=== PATIENT | male | born 1950 | race Two or more races ===

== ENCOUNTER 2021-05-06 16:45 | Inpatient (IN) | payer MEDICARE ==
[~2021-05-06] VITALS: Ht 175.3 cm; Wt 99.8 kg
--- NOTE | 2021-05-06 16:45 | NUR ---
CONCHITA FROM [facility] TO ER BED 5. CODE STROKE ACTIVATED. PT IS AAOX4. NOT IN RESP DISTRESS, BREATHING EVEN AND UNLABORED. BROUGHT IN FOR L SIDED NUMBENESS. LKWT: 1600. PT [facility] SCORE OF 1. WASD AT BEDSIDE FOR EVAL. ORDERS RECEIVED, NOTED AND CARRIED OUT. IV LINE ALREADY ESTABLISHED ON THE L AC 20. BLOOD DRAWN.
--- NOTE | 2021-05-06 16:45 | NUR ---
1644 CODE STROKE ACTIVATED. LKW IS AT 1600
--- NOTE | 2021-05-06 16:47 | NUR ---
PATIENT TAKEN TO CT.
--- NOTE | 2021-05-06 16:48 | NUR ---
PT ON CT TABLE
--- NOTE | 2021-05-06 16:52 | NUR ---
PT BACK TO ER FROM CT
--- NOTE | 2021-05-06 17:00 | NUR ---
NEUROLOGIST ON ROBOT TALKING TO PATIENT
[2021-05-06 17:02] LABS: BASOPHILS # (AUTO) 0.1 K/uL (0.0-0.2); BASOPHILS % (AUTO) 0.7 % (0.0-2.0); EOSINOPHILS % (AUTO) 0.7 % (0.0-6.0); HEMATOCRIT 37 % (39-51); HEMOGLOBIN 12.4 g/dL (13.5-17.5); LYMPHOCYTES # (AUTO) 1.3 K/uL (0.8-4.8); LYMPHOCYTES % (AUTO) 9.7 % (20.0-44.0); MEAN CORPUSCULAR HGB CONC 33 g/dl (31.0-36.0); MEAN CORPUSCULAR VOLUME 83 fL (80-96); MONOCYTES # (AUTO) 0.9 K/uL (0.1-1.30); NEUTROPHILS # (AUTO) 10.6 K/uL (1.8-8.9); NEUTROPHILS % (AUTO) 81.9 % (43.0-81.0); PLATELET COUNT (AUTO) 237 K/uL (150-450); RED BLOOD CELL COUNT(AUTO) 4.47 MIL/uL (4.5-6.0); WHITE BLOOD COUNT (AUTO) 12.9 K/uL (4.3-11.0)
--- NOTE | 2021-05-06 17:11 | NUR ---
PT IS NOT CANDIDATE FOR TPA PER ER MD
[2021-05-06 17:15] LABS: CALCIUM, SERUM 8.4 mg/dL (8.5-10.1); CARBON DIOXIDE 19 mmol/L (21-32); CHLORIDE 101 mmol/L (98-107); CREATININE 2.4 mg/dL (0.6-1.3); POTASSIUM 6.2 mmol/L (3.5-5.1); SODIUM SERUM 132 mmol/L (136-145); UREA NITROGEN, BLOOD 31 mg/dL (7-18)
[2021-05-06 17:16] LABS: GLUCOSE 427 mg/dL (74-106)
[2021-05-06] MEDS ORDERED: ASPIRIN 325 MG TABLET ONE (17:19)
[2021-05-06] MEDS ORDERED: ASPIRIN 325 MG TABLET PO ONE (17:30)
[2021-05-06] MEDS ORDERED: LABETALOL HCL IV 100MG VIAL IV PRN (18:30)
[2021-05-06] MEDS ORDERED: DEXTROSE 50%-WATER 50 ML DISP.SYRIN IV PRN (18:30)
[2021-05-06] MEDS ORDERED: ENALAPRILAT INJ (1.25 MG/ML) 1.25 MG/ML VIAL IV PRN (18:30)
[2021-05-06] MEDS ORDERED: ACETAMINOPHEN 325 MG TABLET PO PRN (18:30)
[2021-05-06] MEDS ORDERED: MAG HYDROX/AL HYDROX/SIMETH 30 ML UDC PO PRN (18:30)
[2021-05-06] MEDS ORDERED: SODIUM POLYSTYRENE SULFONATE 15 G/60 ML BOTTLE PO ONE ×2 (19:00→20:30)
--- NOTE | 2021-05-06 19:15 | NUR ---
ROOM 324-2
--- NOTE | 2021-05-06 19:37 | NUR ---
REPORT GIVEN TO TAI WONG FOR CANDE. PT IS ENROUTE TO UNIT ON [facility] EMT AND RN AT BEDSIDE W/ ACLS PROTOCOL. NAD NOTED DURING TRANSPORT.
[2021-05-06 20:00] VITALS: BP_SYST 125; BP_SYST 127; BP_DIAS 56
--- NOTE | 2021-05-06 20:00 | NUR ---
PASSEMENTERIE WORKERKAI WHAKARURUHAU NOTES RECEIVED ADMISSION FROM ER PER ELIZABETH THIS 71 Y.O. MALE,ALERT,ORIENTED X3,WITH CHIEF COMPLAINTS OF NUMBNESS ON ARMS AND LEGS WHILE EATING IN A RESTAURANT.DIAGNOSIS STROKE,STROKE ASSESSMENT DONE.BOTH HANDS WITH STRONG BRICK PAVER,NO DRIPS,ABLE TO WIGGLE HIS TOES,NO DRIPS.NO FACIAL DROOP.SALINE LOCK LEFT AC INTACT AND PATENT.ABLE TO AMBULATE WITH ASSIST.FALL PRECAUTION OBSERVED,BED ON LOWEST POSITION AND LOCKED,BED ALARM TRIGGERED.CALL LIGHT IN REACH,NEEDS ANTICIPATED.
--- NOTE | 2021-05-06 20:59 | NUR ---
FOOD PRODUCTION MACHINE OPERATOR NOTES SR-83 ON TELE MONITOR
[2021-05-06 21:17] LABS: CHOLESTEROL 131 mg/dL (<200); HDL CHOLESTEROL 29 mg/dL (40-60); LDL 58 mg/dL (0-99); TRIGLYCERIDES 309 mg/dL (30-150)
[2021-05-06] MEDS: MYCOPHENOLATE MOFETIL 250 MG CAPSULE PO SCH (21:19)
[2021-05-06] MEDS: TACROLIMUS ANHYDROUS 0.5 MG CAPSULE PO SCH (21:20)
[2021-05-06] MEDS: SIMVASTATIN 20 MG TABLET PO SCH (21:20)
[2021-05-06] MEDS: HEPARIN SODIUM, PORCINE 5000 UNITS/1 ML VIAL SQ SCH (21:22)
[2021-05-06] MEDS: BLOOD SUGAR DIAGNOSTIC 1 EACH STRIP VI SCH (21:23)
[2021-05-06] MEDS: INSULIN REGULAR, HUMAN 100 UNIT/ML 3 ML VIAL SQ PRN (21:42)
--- NOTE | 2021-05-06 22:00 | NUR ---
ENROBING MACHINE FEEDER NOTES ACCU-CHECK BLOOD SUGAR CHECK 301,COVERED WITH HUMULIN R 8 UNITS PER MODERATE SLIDING SCALE.
[2021-05-06 23:33] VITALS: BP 113/48
[2021-05-07] VITALS (7 sets, daily range): BP systolic 113–184; BP diastolic 48–97
[2021-05-07] MEDS: BLOOD SUGAR DIAGNOSTIC 1 EACH STRIP VI SCH ×4 (05:43→21:37)
[2021-05-07] MEDS: INSULIN REGULAR, HUMAN 100 UNIT/ML 3 ML VIAL SQ PRN ×2 (05:46→17:56)
--- NOTE | 2021-05-07 06:00 | NUR ---
PLANT ANATOMIST NOTES ACV[facility]-CHECK BLOOD SUGAR CHECK 209,WILL COVER WITH HUMULIN R 6 UNITS PER SLIDING SCALE.
[2021-05-07 06:28] LABS: CALCIUM, SERUM 8.4 mg/dL (8.5-10.1); CREATININE 2.3 mg/dL (0.6-1.3); POTASSIUM 4.3 mmol/L (3.5-5.1)
[2021-05-07 06:29] LABS: BASOPHILS % (AUTO) 0.4 % (0.0-2.0); EOSINOPHILS % (AUTO) 1.1 % (0.0-6.0); HEMATOCRIT 36 % (39-51); HEMOGLOBIN 12.3 g/dL (13.5-17.5); LYMPHOCYTES # (AUTO) 1.3 K/uL (0.8-4.8); LYMPHOCYTES % (AUTO) 17.6 % (20.0-44.0); MEAN CORPUSCULAR HGB CONC 34 g/dl (31.0-36.0); MEAN CORPUSCULAR VOLUME 84 fL (80-96); MONOCYTES # (AUTO) 0.6 K/uL (0.1-1.30); MONOCYTES % (AUTO) 7.3 % (2.0-12.0); NEUTROPHILS # (AUTO) 5.6 K/uL (1.8-8.9); NEUTROPHILS % (AUTO) 73.6 % (43.0-81.0); PLATELET COUNT (AUTO) 192 K/uL (150-450); RED BLOOD CELL COUNT(AUTO) 4.28 MIL/uL (4.5-6.0); WHITE BLOOD COUNT (AUTO) 7.6 K/uL (4.3-11.0)
--- NOTE | 2021-05-07 06:50 | NUR ---
LANDFILL GRADER NOTES ON BED,SLEPT WELL AT NIGHT,CLAIMED NUMBNESS ON UPPER AND LOWER EXTREMITIES IMPROVED,NO SLURRED SPEECH,IN NO ACUTE DISTRESS.CALL LIGHT IN REACH,NEEDS ATTENDED.
[2021-05-07] MEDS ORDERED: PANTOPRAZOLE 40 MG TABLET.DR PO SCH (07:30)
--- NOTE | 2021-05-07 07:30 | NUR ---
RESEARCH DEVELOPMENT MANAGER OPENING NOTES RECEIVE PATIENT ON BED, AWAKE AND A/O X4. ON ROOM AIR, BREATHING EVENLY AND UNLABORED. NOT IN DISTRESS. WITH NO COMPLAINTS OF PAIN OR DISCOMFORT AT THIS TIME. WITH IV ACCESS AT LEFT AC G18, SALINE LOCKED, INTACT AND PATENT. SAFETY MEASURES IN PLACED. CALL LIGHT WITHIN REACH. BED ON LOWEST AND LOCKED POSITION WITH SIDE RAILS UP X2. WILL CONTINUE TO MONITOR.
[2021-05-07] MEDS ORDERED: LISI20TA30 PO (08:45)
[2021-05-07] MEDS ORDERED: VENL37.55 PO (08:45)
[2021-05-07] MEDS ORDERED: MYCOPHENOLATE (08:45)
[2021-05-07] MEDS ORDERED: CARV12.52 PO (08:45)
[2021-05-07] MEDS ORDERED: [UNRECOGNIZED DRUG - REMARK] (08:45)
[2021-05-07] MEDS ORDERED: PANT40TA49 PO (08:45)
[2021-05-07] MEDS ORDERED: TAMS-12 PO (08:45)
[2021-05-07] MEDS ORDERED: ATOR40TA PO (08:45)
[2021-05-07] MEDS ORDERED: predniSONE 20 MG TABLET PO SCH (09:00)
[2021-05-07] MEDS: ASPIRIN EC 325 MG TABLET.DR PO SCH (09:02)
[2021-05-07] MEDS: MYCOPHENOLATE MOFETIL 250 MG CAPSULE PO SCH ×2 (09:02→21:02)
[2021-05-07] MEDS: HEPARIN SODIUM, PORCINE 5000 UNITS/1 ML VIAL SQ SCH ×2 (09:08→21:04)
[2021-05-07] MEDS: TACROLIMUS ANHYDROUS 0.5 MG CAPSULE PO SCH ×2 (10:33→21:03)
[2021-05-07] MEDS ORDERED: TACR1CAP2 PO (10:57)
[2021-05-07] MEDS ORDERED: MYCO500T PO (10:57)
[2021-05-07] MEDS ORDERED: VENL150C2 PO (12:29)
[2021-05-07] MEDS ORDERED: MYCO250C PO (12:29)
[2021-05-07] MEDS ORDERED: DEXT15DR6 EACHEYE (12:31)
[2021-05-07] MEDS ORDERED: CHOL100045 PO (12:33)
[2021-05-07] MEDS ORDERED: FLUT16SP16 NS (12:35)
[2021-05-07] MEDS ORDERED: INSU100V7 SQ (12:36)
[2021-05-07] MEDS ORDERED: MAGN200T5 PO (12:38)
[2021-05-07] MEDS ORDERED: SEMA0.25 SQ (12:39)
[2021-05-07] MEDS ORDERED: INSU100V42 SQ (12:40)
[2021-05-07] MEDS ORDERED: POLYVINYL ALCOHOL 15 ML BOTTLE EACHEYE PRN (15:00)
[2021-05-07] MEDS: FLUTICASONE PROPIONATE 16 GM BOTTLE NS SCH (15:24)
--- NOTE | 2021-05-07 16:05 | NUR ---
SS Consult: SS consult requested for stroke protocol. The pt. is a 71 year old male at [facility]. Per pt. he was seeking medical attention for possible stroke due to left sided weakness. The pt. is A&O X4 and makes good eye contact. The pt.'s speech and mood are WNL. Pt. denies SI/HI and denies hallucinations. Pt. states he will return back home[[id number] [facility] [address]; [phone]] when ready to discharge. Pt. stated he has 4 children and his support system also includes a few neighbors in his intermediate building. Pt. received SSI and [place] benefits. Pt. denies drug & alcohol use. Pt. has been diagnosed with depression in the past and is on Venlafaxine. SW provided Stroke Empowerment educational material and pt. accepted it.
[2021-05-07] MEDS: CARVEDILOL 12.5 MG TABLET PO SCH (17:42)
--- NOTE | 2021-05-07 18:27 | NUR ---
CONTROL SYSTEM MANAGER CLOSING NOTES RECEIVE PATIENT ON BED, AWAKE AND A/O X4. ON ROOM AIR, BREATHING EVENLY AND UNLABORED. NOT IN DISTRESS. WITH NO COMPLAINTS OF PAIN OR DISCOMFORT AT THIS TIME. WITH IV ACCESS AT LEFT AC G18, SALINE LOCKED, INTACT AND PATENT. SAFETY MEASURES IN PLACED. CALL LIGHT WITHIN REACH. BED ON LOWEST AND LOCKED POSITION WITH SIDE RAILS UP X2. WILL ENDORSE TO NEXT SHIFT FOR CANDE..
--- NOTE | 2021-05-07 19:45 | NUR ---
PHYSICAL MEDICINE PHYSICIAN NOTES RECEIVED RESTING COMFORTABLY ON BED,BREATHING REGULAR,NOT IN ANY FORM OF DISTRESS,O2 SAT96% ON ROOM AIR.SALINE LOCK LEFT AC INTACT AND PATENT.AMBULATE WITH STEADY GAIT THIS TIME.DENIES CHEST PAIN,DENIES NUMBNESS ON BOTH UPPER AND LOWER EXTREMITIES.CALL LIGHT IN REACH,NEEDS ANTICIPATED.
[2021-05-07] MEDS: TAMSULOSIN 0.4 MG CAP.SR.24H PO SCH (21:06)
[2021-05-07] MEDS: SIMVASTATIN 20 MG TABLET PO SCH (21:06)
[2021-05-07] MEDS ORDERED: ASPIRIN 81 MG TAB.CHEW ONE (21:22)
[2021-05-07] MEDS: INSULIN GLARGINE, 100 UNIT/ML CARTRIDGE SQ SCH (21:41)
[2021-05-07] MEDS: *INSULIN REGULAR(HUMULIN R)HUM 100 UNIT/ML VIAL SQ PRN (21:44)
--- NOTE | 2021-05-07 22:35 | NUR ---
WOOD AND HARDWARE OUTFITTER NOTES MRI BRAIN WITHOUT CONTRAST RESULT IN,DR JARA MADE AWARE,WITH ORDER TO JUST CONTINUE NEURO CHECK AND ASPIRIN ORDER.
[2021-05-08] VITALS: BP 157/77
[2021-05-08 03:48] VITALS: BP 141/73
[2021-05-08] MEDS: BLOOD SUGAR DIAGNOSTIC 1 EACH STRIP VI SCH ×4 (05:34→21:13)
--- NOTE | 2021-05-08 05:45 | NUR ---
SLEEVE WHEEL MAKER NOTES ACCU-CHECK BLOOD SUGAR CHECK 177,COVERED WITH HUMULIN R 3 UNITS PER SLIDING SCALE.
[2021-05-08] MEDS: INSULIN REGULAR, HUMAN 100 UNIT/ML 3 ML VIAL SQ PRN ×3 (05:47→18:08)
--- NOTE | 2021-05-08 06:52 | NUR ---
COCOA BEAN ROASTER NOTES RESTED FAIRLY AT NIGHT,REMAINS ALERT,ORIENTED X4,DENIES WEAKNESS,STILL NEED URINE FOR FOR LAB WORKS ORDERED.IN NO ACUTE DISTRESS
[2021-05-08 07:21] LABS: CALCIUM, SERUM 8.7 mg/dL (8.5-10.1); POTASSIUM 4.4 mmol/L (3.5-5.1)
--- NOTE | 2021-05-08 07:30 | NUR ---
COLLEGE INSTRUCTOR OPENING NOTES RECEIVED PATIENT ON BED, AWAKE AND A/O X4. ON ROOM AIR BREATHING EVENLY AND UNLABORED. NOT IN DISTRESS. WITH NO COMPLAINTS OF PAIN OR DISCOMFORT AT THIS TIME. ON TELE MONITOR WITH CURRENT READING SR WITH SOME PVCS AT 79BPM. WITH IV ACCESS AT LEFT AC G18 HEPLOCK, PATENT AND INTACT. SAFETY MEASURES IN PLACED. CALL LIGHT WITHIN EASY REACH. BED ON LOWEST AND LOCKED POSITION. SIDE RAILS UP X2. WILL CONTINUE TO MONITOR.
[2021-05-08] MEDS: CHOLECALCIFEROL 1,000 UNIT TABLET (VIT D3) PO SCH (08:18)
[2021-05-08] MEDS: CARVEDILOL 12.5 MG TABLET PO SCH ×2 (08:19→17:10)
[2021-05-08] MEDS: MAGNESIUM OXIDE 400 MG TABLET PO SCH (08:19)
[2021-05-08] MEDS: GEMFIBROZIL 600 MG TABLET PO SCH ×2 (08:20→21:13)
[2021-05-08] MEDS: VENLAFAXINE XR 150 MG CAP.SR.24H PO SCH (08:20)
[2021-05-08] MEDS: PANTOPRAZOLE 40 MG TABLET.DR PO SCH (08:21)
[2021-05-08] MEDS: predniSONE 5 MG TABLET PO SCH (08:21)
[2021-05-08 08:37] VITALS: BP 148/86
[2021-05-08] MEDS: FLUTICASONE PROPIONATE 16 GM BOTTLE NS SCH (09:20)
[2021-05-08] MEDS: TACROLIMUS ANHYDROUS 0.5 MG CAPSULE PO SCH ×2 (09:20→21:12)
[2021-05-08] MEDS: ASPIRIN EC 325 MG TABLET.DR PO SCH (09:21)
[2021-05-08] MEDS: MYCOPHENOLATE MOFETIL 250 MG CAPSULE PO SCH ×2 (09:21→21:13)
[2021-05-08] MEDS: HEPARIN SODIUM, PORCINE 5000 UNITS/1 ML VIAL SQ SCH ×2 (09:22→21:19)
[2021-05-08 12:52] LABS: BILIRUBIN,URINE NEGATIVE (NEGATIVE); COLOR,URINE YELLOW (YELLOW); LEUKOCYTE ESTERASE ,URINE NEGATIVE (NEGATIVE); NITRITE, URINE NEGATIVE (NEGATIVE); PH,URINE 6.5 (5.0-8.0); PROTEIN,URINE 30 mg/dl (NEGATIVE); UGLUCOSE 500 MG/DL mg/dL (NEGATIVE); UROBILINOGEN,URINE 0.2 EU/dL (0.2)
[2021-05-08 13:12] LABS: BACTERIA,URINE Rare /HPF (None Seen); RBC,URINE NONE SEEN /HPF (0-2); WBC,URINE 0-2 /HPF (0-3)
[2021-05-08 13:13] LABS: SQUAMOUS EPITHELIAL CELL,UR Few /HPF (None Seen)
[2021-05-08 13:43] LABS: CREATININE, URINE 81.8 MG/DL (30.0-125.0)
[2021-05-08 16:11] VITALS: BP 172/92
--- NOTE | 2021-05-08 18:55 | NUR ---
MS RN CLOSING NOTES PATIENT ON BED, AWAKE AND A/O X4. ON ROOM AIR BREATHING EVENLY AND UNLABORED. NOT IN DISTRESS. WITH NO COMPLAINTS OF PAIN OR DISCOMFORT AT THIS TIME. WITH IV ACCESS AT LEFT AC G18 HEPLOCK, PATENT AND INTACT. SAFETY MEASURES IN PLACED. CALL LIGHT WITHIN EASY REACH. BED ON LOWEST AND LOCKED POSITION. SIDE RAILS UP X2. WILL ENDORSE TO NEXT SHIFT.
--- NOTE | 2021-05-08 19:50 | NUR ---
MS RN OPENINGS NOTES RECEIVED PT IN BED, WATCHING TV. PT IS AOx4. PT IS ON ROOM AIR AND TOLERATING WELL. NO SOB NOTED. NO S/SX OF RESPIRATORY DISTRESS. IV ACCESS IN L AC #18. IV IS INTACT, PATENT, FLUSHING WELL, AND SALINE LOCKED. SAFETY MEASURES IN PLACE: BED IN LOWEST, LOCKED POSITION, SIDERAILS UP x2. CALL LIGHT AND TABLE WITHIN REACH. WILL CONTINUE TO MONITOR.
[2021-05-08 20:00] VITALS: BP 162/79
[2021-05-08] MEDS: SIMVASTATIN 20 MG TABLET PO SCH (21:13)
[2021-05-08] MEDS: TAMSULOSIN 0.4 MG CAP.SR.24H PO SCH (21:13)
[2021-05-08] MEDS: INSULIN GLARGINE, 100 UNIT/ML CARTRIDGE SQ SCH (21:15)
[2021-05-08] MEDS: *INSULIN REGULAR(HUMULIN R)HUM 100 UNIT/ML VIAL SQ PRN (21:17)
--- NOTE | 2021-05-09 01:34 | NUR ---
JOSE RETURN CALL FROM DR. MCINTOSH REGARDING PATIENTS' COMPLAINTS OF ITCHING, ORDERS RECEIVED. Addendum: 05/09/21 at 0141 by ENRIQUE BUCKLEY RN DISREGARD ABOVE DOCUMENTATION. WRONG PATIENT
--- NOTE | 2021-05-09 06:49 | NUR ---
MS RN CLOSING NOTES PT IN SLEEPING, AWAKENS TO VERBAL STIMULI. PT IS AOx4. PT IS ON ROOM AIR AND TOLERATING WELL. NO SOB NOTED. NO S/SX OF RESPIRATORY DISTRESS. IV ACCESS IN L AC #18. IV IS INTACT, PATENT, FLUSHING WELL, AND SALINE LOCKED. ALL NEEDS MET. PT KEPT CLEAN AND DRY. SAFETY MEASURES IN PLACE: BED IN LOWEST, LOCKED POSITION, SIDERAILS UP x2. CALL LIGHT AND TABLE WITHIN REACH. WILL ENDORSE TO ONCOMING SHIFT.
[2021-05-09] MEDS: BLOOD SUGAR DIAGNOSTIC 1 EACH STRIP VI SCH (07:01)
[2021-05-09] MEDS: INSULIN REGULAR, HUMAN 100 UNIT/ML 3 ML VIAL SQ PRN (07:02)
--- NOTE | 2021-05-09 07:30 | NUR ---
MS RN OPENINGS NOTES RECEIVED PT IN BED, AWAKE, PT IS AOx4. PT IS ON ROOM AIR AND TOLERATING WELL. NO SOB NOTED. NO S/SX OF RESPIRATORY DISTRESS. NOTED WITH WEAKNESS ON LEFT SIDE. IV ACCESS IN L AC #18. IV IS INTACT, PATENT, FLUSHING WELL, AND SALINE LOCKED. SAFETY MEASURES IN PLACE: BED IN LOWEST, LOCKED POSITION, SIDE RAILS UP x2. CALL LIGHT AND TABLE WITHIN REACH. WILL CONTINUE TO MONITOR ACCORDINGLY.
[2021-05-09 08:00] VITALS: BP 142/84
[2021-05-09] MEDS: GEMFIBROZIL 600 MG TABLET PO SCH (08:17)
[2021-05-09] MEDS: CHOLECALCIFEROL 1,000 UNIT TABLET (VIT D3) PO SCH (08:18)
[2021-05-09] MEDS: PANTOPRAZOLE 40 MG TABLET.DR PO SCH (08:18)
[2021-05-09] MEDS: ASPIRIN EC 325 MG TABLET.DR PO SCH (08:19)
[2021-05-09] MEDS: predniSONE 5 MG TABLET PO SCH (08:19)
[2021-05-09] MEDS: VENLAFAXINE XR 150 MG CAP.SR.24H PO SCH (08:19)
[2021-05-09] MEDS: MYCOPHENOLATE MOFETIL 250 MG CAPSULE PO SCH (08:19)
[2021-05-09] MEDS: MAGNESIUM OXIDE 400 MG TABLET PO SCH (08:19)
[2021-05-09] MEDS: FLUTICASONE PROPIONATE 16 GM BOTTLE NS SCH (08:20)
[2021-05-09] MEDS: TACROLIMUS ANHYDROUS 0.5 MG CAPSULE PO SCH (08:20)
[2021-05-09 08:56] VITALS: BP 142/64
[2021-05-09] MEDS: CARVEDILOL 12.5 MG TABLET PO SCH (08:56)
[2021-05-09] MEDS: HEPARIN SODIUM, PORCINE 5000 UNITS/1 ML VIAL SQ SCH (08:57)
--- NOTE | 2021-05-09 11:22 | NUR ---
MS PROJECTS MANAGER NOTES DISCHARGED PATIENT IN STABLE CONDITION. VITAL SIGNS WITHIN NORMAL LIMITS. HEALTH EDUCATION, HOME MEDICATION DISCUSSED WITH PATIENT, INSTRUCTED ON FOLLOW UP WITH PRIMARY CARE PHYSICIAN, PATIENT VERBALIZED UNDERSTANDING OF INSTRUCTIONS GIVEN. IV ACCESS REMOVED, COVERED WITH GAUZE AND SECURED WITH TAPE. NO BLEEDING NOTED. ARMBAND REMOVED. BELONGINGS SIGNED AND ACCOUNTED FOR. WHEELED TO LOBBY BY ENRIQUE BARGER) ACCOMPANIED BY HIS 2 FRIENDS. LEFT UNIT IN STABLE CONDITION AT 11:15 AM. MD AND CHARGE NURSE AWARE OF DISCHARGE.
== END 2021-05-09 11:15 | disposition home health service (06) | DRG 64 ==
LOC: ER 16:46 → TELE 19:22 → MED 05-08 08:18
PROVIDERS: ADMIT Nurse Practitioner Acute Care; ATTEND Nurse Practitioner Acute Care
DX: I63.9 Cerebral infarction, unspecified (principal); N17.0 Acute kidney failure with tubular necrosis; E87.1 Hypo-osmolality and hyponatremia; Z94.4 Liver transplant status; Z94.0 Kidney transplant status; D84.9 Immunodeficiency, unspecified; E11.65 Type 2 diabetes mellitus with hyperglycemia; Z20.822 Contact with and (suspected) exposure to COVID-19; E78.5 Hyperlipidemia, unspecified; Z79.4 Long term (current) use of insulin; Z87.891 Personal history of nicotine dependence; R29.701 NIHSS score 1; E66.9 Obesity, unspecified; I10 Essential (primary) hypertension; F10.11 Alcohol abuse, in remission; Y90.9 Presence of alcohol in blood, level not specified; Z68.32 Body mass index [BMI] 32.0-32.9, adult; I67.2 Cerebral atherosclerosis; Z86.73 Personal history of transient ischemic attack (TIA), and cerebral infarction without residual deficits
CPT/HCPCS: 36415; 70450-TC; 70551-TC; 71045-TC; 76770-TC; 80048-TC; 80061-TC; 81001; 82570-TC; 82962-TC; 83880; 84300-TC; 84484-TC; 85025-TC; 85730-TC; 87081-TC; 92526; 92611-TC; 93307-TC; 93880-TC; 97116-TC; 97530-TC; C9803; G0378; J1644; J1815; J7507; J7512; J7517

== ENCOUNTER 2023-04-01 12:08 | Inpatient (IN) | payer MEDICARE ==
[~2023-04-01] VITALS: Ht 175.3 cm; Wt 82.6 kg
[2023-04-01] MEDS: TACROLIMUS ANHYDROUS 0.5 MG CAPSULE PO SCH ×2 (10:00→17:00)
[~2023-04-01 12:08] MED LIST: ATOR40TA PO; CARV12.52 PO; CHOL100045 PO; DEXT15DR6 EACHEYE; FLUT16SP16 BNOSTRILS; INSU100V42 SQ; INSU100V7 SQ; LISI20TA30 PO; MAGN200T5 PO; MYCO250C PO; PANT40TA49 PO; SEMA0.25 SQ; TACR1CAP2 PO; TAMS-12 PO; VENL150C2 PO
[2023-04-01] MEDS ORDERED: IV NS 0.9% 1,000 ML BAG IV ONE (12:30)
[2023-04-01 12:41] LABS: BASOPHILS % (AUTO) 0.2 % (0.0-2.0); EOSINOPHILS # (AUTO) 0.1 K/uL (0.0-0.7); EOSINOPHILS % (AUTO) 0.6 % (0.0-6.0); HEMATOCRIT 35 % (39-51); HEMOGLOBIN 11.4 g/dL (13.5-17.5); LYMPHOCYTES # (AUTO) 0.7 K/uL (0.8-4.8); LYMPHOCYTES % (AUTO) 6.2 % (20.0-44.0); MEAN CORPUSCULAR HEMOGLOBIN 28 PG (26.0-33.0); MEAN CORPUSCULAR HGB CONC 33 g/dl (31.0-36.0); MEAN CORPUSCULAR VOLUME 85 fL (80-96); MONOCYTES # (AUTO) 0.7 K/uL (0.1-1.30); MONOCYTES % (AUTO) 5.8 % (2.0-12.0); NEUTROPHILS % (AUTO) 87.2 % (43.0-81.0); PLATELET COUNT (AUTO) 209 K/uL (150-450); RED BLOOD CELL COUNT(AUTO) 4.14 MIL/uL (4.5-6.0); RED CELL DISTRIBUTION WIDTH 14.8 % (11.5-15.0); WHITE BLOOD COUNT (AUTO) 11.5 K/uL (4.3-11.0)
[2023-04-01 12:50] LABS: CALCIUM, SERUM 8.9 mg/dL (8.5-10.1); CARBON DIOXIDE 17 mmol/L (21-32); CHLORIDE 104 mmol/L (98-107); CREATININE 3.5 mg/dL (0.6-1.3); GLUCOSE 151 mg/dL (74-106); POTASSIUM 3.4 mmol/L (3.5-5.1); SODIUM SERUM 134 mmol/L (136-145); UREA NITROGEN, BLOOD 50 mg/dL (7-18)
[2023-04-01 12:52] LABS: PARTIAL THROMBOPLASTIN TIME 27.1 SEC (24.3-34.3); PROTHROMBIN TIME 10.5 SECS (9.2-11.1)
[2023-04-01 12:59] LABS: ALANINE AMINOTRANSFERASE 26 U/L (12-78); ALBUMIN 3.5 g/dL (3.4-5.0); ALKALINE PHOSPHATASE 80 U/L (46-116); ASPARTATE AMINOTRANSFERASE 24 U/L (15-37); BILIRUBIN,DIRECT 0.1 mg/dL (0.0-0.2); BILIRUBIN,TOTAL 0.6 mg/dL (0.2-1.0); TOTAL PROTEIN, SERUM 6.5 g/dL (6.4-8.2)
[2023-04-01] MEDS ORDERED: ENOXAPARIN SODIUM 40 MG/0.4 ML DISP.SYRIN SQ ONE (14:00)
[2023-04-01] MEDS ORDERED: ENOXAPARIN SODIUM 30 MG/0.3 ML DISP.SYRIN ONE (14:06)
[2023-04-01] MEDS ORDERED: DEXTROSE 50%-WATER 50 ML DISP.SYRIN IV PRN (14:30)
[2023-04-01] MEDS ORDERED: ONDANSETRON HCL/PF 4 MG/2 ML VIAL IVP PRN (14:30)
[2023-04-01] MEDS ORDERED: MORPHINE SULFATE INJ 2 MG/ML DISP.SYRIN IV PRN (14:30)
[2023-04-01] MEDS ORDERED: hydrALAZINE HCL IV 20 MG VIAL IV PRN (14:30)
[2023-04-01] MEDS ORDERED: ENOXAPARIN SODIUM 30 MG/0.3 ML DISP.SYRIN SQ ONE (14:30)
[2023-04-01] MEDS ORDERED: ACETAMINOPHEN 325 MG TABLET PO PRN (14:30)
[2023-04-01 14:50] LABS: LACTIC ACID 2.2 mmol/L (0.4-2.0)
[2023-04-01 16:24] VITALS: BP 121/70; TEMP 97.6
[2023-04-01] MEDS: BLOOD SUGAR DIAGNOSTIC 1 EACH STRIP VI SCH ×3 (16:44→21:59)
[2023-04-01] MEDS: MYCOPHENOLATE MOFETIL 250 MG CAPSULE PO SCH (17:00)
[2023-04-01] MEDS ORDERED: TACROLIMUS ANHYDROUS 1 MG CAPSULE PO SCH (17:00)
[2023-04-01] MEDS: CARVEDILOL 12.5 MG TABLET PO SCH (17:27)
[2023-04-01] MEDS: INSULIN REGULAR, HUMAN 100 UNIT/ML 3 ML VIAL SQ PRN (17:34)
[2023-04-01 20:00] VITALS: BP 133/88; TEMP 97.9
[2023-04-01] MEDS: INSULIN GLARGINE, 100 UNIT/ML CARTRIDGE SQ SCH (22:04)
[2023-04-01] MEDS: ATORVASTATIN 40 MG TABLET PO SCH (22:06)
[2023-04-01] MEDS: TAMSULOSIN 0.4 MG CAP.SR.24H PO SCH (22:06)
[2023-04-01] MEDS: *INSULIN REGULAR(HUMULIN R)HUM 100 UNIT/ML VIAL SQ PRN (22:06)
[2023-04-02] VITALS (9 sets, daily range): BP systolic 69–127; BP diastolic 49–87; TEMP 97.6–98.5; O2SAT 97–99
[2023-04-02 06:20] LABS: BASOPHILS % (AUTO) 0.3 % (0.0-2.0); EOSINOPHILS # (AUTO) 0.1 K/uL (0.0-0.7); EOSINOPHILS % (AUTO) 1.6 % (0.0-6.0); HEMATOCRIT 28 % (39-51); HEMOGLOBIN 9.2 g/dL (13.5-17.5); LYMPHOCYTES # (AUTO) 0.9 K/uL (0.8-4.8); MEAN CORPUSCULAR HEMOGLOBIN 28 PG (26.0-33.0); MEAN CORPUSCULAR HGB CONC 33 g/dl (31.0-36.0); MEAN CORPUSCULAR VOLUME 85 fL (80-96); MONOCYTES # (AUTO) 0.6 K/uL (0.1-1.30); MONOCYTES % (AUTO) 9.3 % (2.0-12.0); NEUTROPHILS # (AUTO) 4.6 K/uL (1.8-8.9); NEUTROPHILS % (AUTO) 74.8 % (43.0-81.0); PLATELET COUNT (AUTO) 163 K/uL (150-450); RED BLOOD CELL COUNT(AUTO) 3.27 MIL/uL (4.5-6.0); RED CELL DISTRIBUTION WIDTH 15.1 % (11.5-15.0); WHITE BLOOD COUNT (AUTO) 6.1 K/uL (4.3-11.0)
[2023-04-02 07:12] LABS: ALBUMIN 2.7 g/dL (3.4-5.0); BILIRUBIN,TOTAL 0.3 mg/dL (0.2-1.0); CALCIUM, SERUM 8.2 mg/dL (8.5-10.1); CREATININE 3.6 mg/dL (0.6-1.3); MAGNESIUM 1.7 mg/dL (1.8-2.4); POTASSIUM 3.9 mmol/L (3.5-5.1); TOTAL PROTEIN, SERUM 5.3 g/dL (6.4-8.2)
[2023-04-02] MEDS: PANTOPRAZOLE 40 MG TABLET.DR PO SCH (07:27)
[2023-04-02] MEDS: BLOOD SUGAR DIAGNOSTIC 1 EACH STRIP VI SCH ×4 (07:40→21:43)
[2023-04-02] MEDS: INSULIN REGULAR, HUMAN 100 UNIT/ML 3 ML VIAL SQ PRN ×3 (07:42→16:46)
[2023-04-02] MEDS ORDERED: IV NS 0.9% 1,000 ML IV PRN (08:30)
[2023-04-02] MEDS: CHOLECALCIFEROL 1,000 UNIT TABLET (VIT D3) PO SCH (08:36)
[2023-04-02] MEDS: CARVEDILOL 12.5 MG TABLET PO SCH ×2 (08:38→16:34)
[2023-04-02] MEDS: LISINOPRIL (20MG) 20 MG TABLET PO SCH (08:39)
[2023-04-02] MEDS: MAGNESIUM OXIDE 400 MG TABLET PO SCH (09:00)
[2023-04-02] MEDS: ENOXAPARIN SODIUM 30 MG/0.3 ML DISP.SYRIN SQ SCH (09:27)
[2023-04-02] MEDS ORDERED: IV NS 0.9% 1,000 ML IV ONE (09:30)
[2023-04-02] MEDS ORDERED: MYCOPHENOLATE MOFETIL 250 MG CAPSULE PO ONE ×2 (09:30→09:38)
[2023-04-02] MEDS ORDERED: MYCOPHENOLATE SODIUM 180 MG TABLET.DR PO ONE (09:32)
[2023-04-02] MEDS: TACROLIMUS ANHYDROUS 0.5 MG CAPSULE PO SCH ×2 (10:02→16:33)
[2023-04-02] MEDS: MYCOPHENOLATE MOFETIL 250 MG CAPSULE PO SCH ×2 (10:43→16:33)
[2023-04-02] MEDS: VENLAFAXINE XR 150 MG CAP.SR.24H PO SCH (10:43)
[2023-04-02] MEDS ORDERED: SEMA1PEN SQ (11:33)
[2023-04-02] MEDS: TAMSULOSIN 0.4 MG CAP.SR.24H PO SCH (21:41)
[2023-04-02] MEDS: ATORVASTATIN 40 MG TABLET PO SCH (21:41)
[2023-04-02] MEDS: INSULIN GLARGINE, 100 UNIT/ML CARTRIDGE SQ SCH (21:42)
[2023-04-03] VITALS: BP 123/69; TEMP 98; O2SAT 95
[2023-04-03 04:00] VITALS: BP_SYST 109; BP_SYST 118; BP_SYST 76; BP_DIAS 47; BP_DIAS 53; BP_DIAS 58; TEMP 98; O2SAT 99
[2023-04-03 05:50] LABS: BASOPHILS % (AUTO) 0.5 % (0.0-2.0); EOSINOPHILS # (AUTO) 0.1 K/uL (0.0-0.7); EOSINOPHILS % (AUTO) 1.4 % (0.0-6.0); HEMATOCRIT 27 % (39-51); HEMOGLOBIN 8.9 g/dL (13.5-17.5); LYMPHOCYTES # (AUTO) 0.8 K/uL (0.8-4.8); MEAN CORPUSCULAR HEMOGLOBIN 29 PG (26.0-33.0); MEAN CORPUSCULAR HGB CONC 34 g/dl (31.0-36.0); MEAN CORPUSCULAR VOLUME 85 fL (80-96); MONOCYTES # (AUTO) 0.6 K/uL (0.1-1.30); MONOCYTES % (AUTO) 11.6 % (2.0-12.0); NEUTROPHILS # (AUTO) 3.6 K/uL (1.8-8.9); NEUTROPHILS % (AUTO) 70.5 % (43.0-81.0); PLATELET COUNT (AUTO) 156 K/uL (150-450); RED BLOOD CELL COUNT(AUTO) 3.12 MIL/uL (4.5-6.0); RED CELL DISTRIBUTION WIDTH 15.1 % (11.5-15.0); WHITE BLOOD COUNT (AUTO) 5.2 K/uL (4.3-11.0)
[2023-04-03 06:30] LABS: ALBUMIN 2.5 g/dL (3.4-5.0); BILIRUBIN,TOTAL 0.2 mg/dL (0.2-1.0); CALCIUM, SERUM 8.1 mg/dL (8.5-10.1); CREATININE 2.7 mg/dL (0.6-1.3); MAGNESIUM 1.6 mg/dL (1.8-2.4); PHOSPHORUS 3.4 mg/dL (2.5-4.9); POTASSIUM 3.7 mmol/L (3.5-5.1); TOTAL PROTEIN, SERUM 4.9 g/dL (6.4-8.2)
[2023-04-03] MEDS: BLOOD SUGAR DIAGNOSTIC 1 EACH STRIP VI SCH ×4 (06:34→22:16)
[2023-04-03 06:42] LABS: APPEARANCE,URINE CLEAR (CLEAR); BILIRUBIN,URINE NEGATIVE (NEGATIVE); BLOOD, URINE NEGATIVE Ery/uL (NEGATIVE); COLOR,URINE YELLOW (YELLOW); KETONES,URINE NEGATIVE (NEGATIVE); LEUKOCYTE ESTERASE ,URINE NEGATIVE (NEGATIVE); NITRITE, URINE NEGATIVE (NEGATIVE); PROTEIN,URINE TRACE mg/dl (NEGATIVE); UGLUCOSE NEGATIVE (NEGATIVE); UROBILINOGEN,URINE 0.2 EU/dL (0.2)
[2023-04-03 06:52] LABS: ADD URINE CULTURE NO; BACTERIA,URINE Rare /HPF (None Seen); RBC,URINE 0-2 /HPF (0-2); WBC,URINE 0-2 /HPF (0-3)
[2023-04-03 06:53] LABS: MUCUS,URINE Few /LPF (None Seen); SQUAMOUS EPITHELIAL CELL,UR None Seen /HPF (None Seen)
[2023-04-03 08:00] VITALS: BP_SYST 118; BP_SYST 79; BP_SYST 97; BP_DIAS 30; BP_DIAS 54; BP_DIAS 56; TEMP 98.3; O2SAT 98
[2023-04-03] MEDS ORDERED: IV NS 0.9% 1,000 ML IV ONE (08:30)
[2023-04-03] MEDS: VENLAFAXINE XR 150 MG CAP.SR.24H PO SCH (08:48)
[2023-04-03] MEDS: PANTOPRAZOLE 40 MG TABLET.DR PO SCH (08:49)
[2023-04-03] MEDS: MYCOPHENOLATE MOFETIL 250 MG CAPSULE PO SCH ×2 (08:49→17:10)
[2023-04-03] MEDS: CHOLECALCIFEROL 1,000 UNIT TABLET (VIT D3) PO SCH (08:49)
[2023-04-03] MEDS: MAGNESIUM OXIDE 400 MG TABLET PO SCH (08:49)
[2023-04-03] MEDS: TACROLIMUS ANHYDROUS 0.5 MG CAPSULE PO SCH ×2 (08:52→17:10)
[2023-04-03] MEDS: ENOXAPARIN SODIUM 30 MG/0.3 ML DISP.SYRIN SQ SCH (08:54)
[2023-04-03] MEDS: CARVEDILOL 12.5 MG TABLET PO SCH ×2 (09:00→17:00)
[2023-04-03] MEDS: LISINOPRIL (20MG) 20 MG TABLET PO SCH (09:00)
[2023-04-03] MEDS: ASPIRIN 81 MG TAB.CHEW PO SCH (09:12)
[2023-04-03 09:46] LABS: EOSINOPHIL,URINE None Seen
[2023-04-03 12:00] VITALS: BP 134/70; TEMP 98; O2SAT 100
[2023-04-03 16:00] VITALS: BP 121/77; TEMP 98.2; O2SAT 99
[2023-04-03] MEDS: IV NS 0.9% 1,000 ML IV PRN (17:09)
[2023-04-03 20:00] VITALS: BP_SYST 108; BP_SYST 136; BP_SYST 147; BP_DIAS 58; BP_DIAS 59; BP_DIAS 66; TEMP 98; O2SAT 99
[2023-04-03] MEDS: TAMSULOSIN 0.4 MG CAP.SR.24H PO SCH (21:25)
[2023-04-03] MEDS: ATORVASTATIN 40 MG TABLET PO SCH (21:26)
[2023-04-03] MEDS: INSULIN GLARGINE, 100 UNIT/ML CARTRIDGE SQ SCH (21:28)
[2023-04-04] VITALS: BP 138/60; TEMP 98.6; O2SAT 99
[2023-04-04] MEDS ORDERED: POTASSIUM CHLORIDE 20 MEQ TAB.PRT.SR PO ONE (01:30)
[2023-04-04] MEDS ORDERED: Magnesium 1GM/D5W 100ML PREMIX PIGGYBACK IV ONE (01:30)
[2023-04-04 04:00] VITALS: BP 170/75; TEMP 98; O2SAT 99
[2023-04-04 06:13] LABS: BILIRUBIN,TOTAL 0.3 mg/dL (0.2-1.0); CALCIUM, SERUM 8.8 mg/dL (8.5-10.1); CREATININE 2.1 mg/dL (0.6-1.3); MAGNESIUM 2.1 mg/dL (1.8-2.4); PHOSPHORUS 2.4 mg/dL (2.5-4.9); POTASSIUM 3.9 mmol/L (3.5-5.1); TOTAL PROTEIN, SERUM 5.9 g/dL (6.4-8.2)
[2023-04-04 06:18] LABS: BASOPHILS % (AUTO) 0.4 % (0.0-2.0); EOSINOPHILS # (AUTO) 0.1 K/uL (0.0-0.7); EOSINOPHILS % (AUTO) 0.6 % (0.0-6.0); HEMATOCRIT 32 % (39-51); HEMOGLOBIN 10.2 g/dL (13.5-17.5); LYMPHOCYTES # (AUTO) 0.4 K/uL (0.8-4.8); LYMPHOCYTES % (AUTO) 3.9 % (20.0-44.0); MEAN CORPUSCULAR HEMOGLOBIN 28 PG (26.0-33.0); MEAN CORPUSCULAR HGB CONC 32 g/dl (31.0-36.0); MEAN CORPUSCULAR VOLUME 87 fL (80-96); MONOCYTES # (AUTO) 0.9 K/uL (0.1-1.30); MONOCYTES % (AUTO) 9.1 % (2.0-12.0); NEUTROPHILS # (AUTO) 8.4 K/uL (1.8-8.9); PLATELET COUNT (AUTO) 186 K/uL (150-450); RED BLOOD CELL COUNT(AUTO) 3.63 MIL/uL (4.5-6.0); RED CELL DISTRIBUTION WIDTH 15.2 % (11.5-15.0); WHITE BLOOD COUNT (AUTO) 9.8 K/uL (4.3-11.0)
[2023-04-04] MEDS: IV NS 0.9% 1,000 ML IV PRN (06:48)
[2023-04-04] MEDS: BLOOD SUGAR DIAGNOSTIC 1 EACH STRIP VI SCH ×4 (07:43→22:22)
[2023-04-04 08:00] VITALS: BP 148/66; TEMP 98.1; O2SAT 99
[2023-04-04] MEDS: LISINOPRIL (20MG) 20 MG TABLET PO SCH (09:02)
[2023-04-04] MEDS: MAGNESIUM OXIDE 400 MG TABLET PO SCH (09:02)
[2023-04-04] MEDS: ASPIRIN 81 MG TAB.CHEW PO SCH (09:02)
[2023-04-04] MEDS: MYCOPHENOLATE MOFETIL 250 MG CAPSULE PO SCH ×2 (09:04→16:44)
[2023-04-04] MEDS: CHOLECALCIFEROL 1,000 UNIT TABLET (VIT D3) PO SCH (09:05)
[2023-04-04] MEDS: CARVEDILOL 12.5 MG TABLET PO SCH ×2 (09:05→16:43)
[2023-04-04] MEDS: TACROLIMUS ANHYDROUS 0.5 MG CAPSULE PO SCH ×2 (09:05→16:44)
[2023-04-04] MEDS: ENOXAPARIN SODIUM 30 MG/0.3 ML DISP.SYRIN SQ SCH (09:07)
[2023-04-04] MEDS: VENLAFAXINE XR 150 MG CAP.SR.24H PO SCH (09:10)
[2023-04-04] MEDS: PANTOPRAZOLE 40 MG TABLET.DR PO SCH (09:11)
[2023-04-04] MEDS ORDERED: IV NS 0.9% 1,000 ML IV PRN (11:00)
[2023-04-04] MEDS ORDERED: K PHOS NEUTRAL 250 MG TABLET PO SCH (11:00)
[2023-04-04 12:00] VITALS: BP 127/60; TEMP 98.6; O2SAT 99
[2023-04-04] MEDS: *INSULIN REGULAR(HUMULIN R)HUM 100 UNIT/ML VIAL SQ PRN ×2 (13:33→22:23)
[2023-04-04] MEDS ORDERED: K PHOS NEUTRAL 250 MG TABLET PO ONE (15:30)
[2023-04-04 16:00] VITALS: BP 138/67; TEMP 98.9; O2SAT 99
[2023-04-04 20:00] VITALS: BP 119/59; TEMP 98.9; O2SAT 99
[2023-04-04] MEDS: TAMSULOSIN 0.4 MG CAP.SR.24H PO SCH (22:13)
[2023-04-04] MEDS: ATORVASTATIN 40 MG TABLET PO SCH (22:13)
[2023-04-04] MEDS: INSULIN GLARGINE, 100 UNIT/ML CARTRIDGE SQ SCH (22:26)
[2023-04-05] VITALS: BP 133/69; TEMP 98.3; O2SAT 99
[2023-04-05 04:00] VITALS: BP 129/63; TEMP 98.4; O2SAT 99
[2023-04-05 06:46] LABS: BASOPHILS % (AUTO) 0.3 % (0.0-2.0); EOSINOPHILS # (AUTO) 0.1 K/uL (0.0-0.7); EOSINOPHILS % (AUTO) 1.1 % (0.0-6.0); HEMATOCRIT 27 % (39-51); HEMOGLOBIN 8.9 g/dL (13.5-17.5); LYMPHOCYTES # (AUTO) 0.5 K/uL (0.8-4.8); LYMPHOCYTES % (AUTO) 9.6 % (20.0-44.0); MEAN CORPUSCULAR HEMOGLOBIN 28 PG (26.0-33.0); MEAN CORPUSCULAR HGB CONC 33 g/dl (31.0-36.0); MEAN CORPUSCULAR VOLUME 86 fL (80-96); MONOCYTES # (AUTO) 0.7 K/uL (0.1-1.30); NEUTROPHILS # (AUTO) 3.5 K/uL (1.8-8.9); PLATELET COUNT (AUTO) 151 K/uL (150-450); RED BLOOD CELL COUNT(AUTO) 3.17 MIL/uL (4.5-6.0); RED CELL DISTRIBUTION WIDTH 14.7 % (11.5-15.0); WHITE BLOOD COUNT (AUTO) 4.8 K/uL (4.3-11.0)
[2023-04-05 07:16] LABS: CALCIUM, SERUM 8.7 mg/dL (8.5-10.1); CREATININE 1.9 mg/dL (0.6-1.3); MAGNESIUM 1.6 mg/dL (1.8-2.4); PHOSPHORUS 3.2 mg/dL (2.5-4.9); POTASSIUM 4.3 mmol/L (3.5-5.1)
[2023-04-05] MEDS: BLOOD SUGAR DIAGNOSTIC 1 EACH STRIP VI SCH ×2 (07:40→11:07)
[2023-04-05 08:09] VITALS: BP 125/68; TEMP 98; O2SAT 98
[2023-04-05 08:10] VITALS: BP_SYST 83; BP_SYST 86; BP_DIAS 50
[2023-04-05] MEDS: CHOLECALCIFEROL 1,000 UNIT TABLET (VIT D3) PO SCH (08:17)
[2023-04-05] MEDS: MYCOPHENOLATE MOFETIL 250 MG CAPSULE PO SCH (08:17)
[2023-04-05] MEDS: ASPIRIN 81 MG TAB.CHEW PO SCH (08:17)
[2023-04-05] MEDS: PANTOPRAZOLE 40 MG TABLET.DR PO SCH (08:17)
[2023-04-05] MEDS: TACROLIMUS ANHYDROUS 0.5 MG CAPSULE PO SCH (08:17)
[2023-04-05] MEDS: MAGNESIUM OXIDE 400 MG TABLET PO SCH (08:17)
[2023-04-05] MEDS: LISINOPRIL (20MG) 20 MG TABLET PO SCH (08:18)
[2023-04-05] MEDS: ENOXAPARIN SODIUM 30 MG/0.3 ML DISP.SYRIN SQ SCH (08:21)
[2023-04-05] MEDS: VENLAFAXINE XR 150 MG CAP.SR.24H PO SCH (08:26)
[2023-04-05] MEDS: CARVEDILOL 12.5 MG TABLET PO SCH (08:26)
[2023-04-05] MEDS: MIDODRINE HCL (5MG) 5 MG TABLET PO SCH ×2 (08:27→12:06)
[2023-04-05] MEDS: Magnesium 1GM/D5W 100ML PREMIX 100 ML IV SCH ×2 (10:34→11:32)
[2023-04-05 12:03] VITALS: BP 126/60; TEMP 98.1; O2SAT 98
[2023-04-05 12:06] VITALS: BP 118/60
[2023-04-05] MEDS ORDERED: TAMSULOSIN 0.4 MG CAP.SR.24H PO STA (15:03)
== END 2023-04-05 15:57 | disposition left against medical advice (07) | DRG 280 ==
LOC: ER 12:10 → TELE1 14:28 → MEDSG1 04-05 08:13
PROVIDERS: ADMIT Internal Medicine
DX: I95.1 Orthostatic hypotension (principal); I50.33 Acute on chronic diastolic (congestive) heart failure; I21.A1 Myocardial infarction type 2; N17.0 Acute kidney failure with tubular necrosis; I13.0 Hypertensive heart and chronic kidney disease with heart failure and stage 1 through stage 4 chronic kidney disease, or unspecified chronic kidney disease; E44.0 Moderate protein-calorie malnutrition; E87.20 Acidosis, unspecified; Z94.4 Liver transplant status; E87.1 Hypo-osmolality and hyponatremia; T86.12 Kidney transplant failure; N18.9 Chronic kidney disease, unspecified; D63.8 Anemia in other chronic diseases classified elsewhere; E11.22 Type 2 diabetes mellitus with diabetic chronic kidney disease; E78.5 Hyperlipidemia, unspecified; E88.09 Other disorders of plasma-protein metabolism, not elsewhere classified; Z79.4 Long term (current) use of insulin; Z86.73 Personal history of transient ischemic attack (TIA), and cerebral infarction without residual deficits; Z87.891 Personal history of nicotine dependence; Z68.26 Body mass index [BMI] 26.0-26.9, adult; E87.6 Hypokalemia; Y83.2 Surgical operation with anastomosis, bypass or graft as the cause of abnormal reaction of the patient, or of later complication, without mention of misadventure at the time of the procedure; Y92.009 Unspecified place in unspecified non-institutional (private) residence as the place of occurrence of the external cause
CPT/HCPCS: 36415; 70450-TC; 71045-TC; 72125-TC; 76770-TC; 80048-TC; 80053-TC; 80076-TC; 81001; 82533; 82570-TC; 82962-TC; 83605-TC; 83735-TC; 83880; 84100-TC; 84300-TC; 84443-TC; 84484-TC; 85025-TC; 85730-TC; 86850-TC; 87081-TC; 93307-TC; 97110-TC; 97112-TC; 97116-TC; 97530-TC; G0378; J0360; J1650; J1815; J3475; J7030; J7507; J7517; J7518

== ENCOUNTER 2023-04-06 09:52 | Emergency (ER) | payer MEDICARE ==
[~2023-04-06] VITALS: Ht 175.3 cm; Wt 79.4 kg
[~2023-04-06 09:52] MED LIST changes: -DEXT15DR6 EACHEYE; -LISI20TA30 PO; -SEMA0.25 SQ; +SEMA1PEN SQ
[2023-04-06 10:00] VITALS: BP 142/67; TEMP 98.1; O2SAT 99
== END 2023-04-06 10:55 | disposition home or self-care (01) ==
LOC: ER 09:59
DX: R33.9 Retention of urine, unspecified (principal); I11.0 Hypertensive heart disease with heart failure; I50.9 Heart failure, unspecified; E78.5 Hyperlipidemia, unspecified; E11.9 Type 2 diabetes mellitus without complications; I25.2 Old myocardial infarction; Z79.4 Long term (current) use of insulin; Z79.899 Other long term (current) drug therapy

== ENCOUNTER 2023-07-14 12:36 | Emergency (ER) | payer MEDICARE ==
[~2023-07-14] VITALS: Ht 175.3 cm; Wt 79.4 kg
[2023-07-14] MEDS ORDERED: MORPHINE SULFATE INJ 2 MG/ML DISP.SYRIN IV ONE (13:00)
[2023-07-14] MEDS ORDERED: IV NS 0.9% 1,000 ML BAG IV ONE (13:00)
[2023-07-14] MEDS ORDERED: ONDANSETRON HCL/PF 4 MG/2 ML VIAL IVP ONE (13:00)
[2023-07-14] MEDS ORDERED: MORPHINE SULFATE INJ 2 MG/ML DISP.SYRIN ONE (13:03)
[2023-07-14] MEDS ORDERED: ONDANSETRON HCL/PF 4 MG/2 ML VIAL ONE (13:03)
[2023-07-14 13:23] LABS: BASOPHILS # (AUTO) 0.1 K/uL (0.0-0.2); BASOPHILS % (AUTO) 0.4 % (0.0-2.0); EOSINOPHILS # (AUTO) 0.1 K/uL (0.0-0.7); EOSINOPHILS % (AUTO) 0.3 % (0.0-6.0); HEMATOCRIT 35 % (39-51); HEMOGLOBIN 11.2 g/dL (13.5-17.5); LYMPHOCYTES # (AUTO) 0.4 K/uL (0.8-4.8); LYMPHOCYTES % (AUTO) 1.9 % (20.0-44.0); MEAN CORPUSCULAR HEMOGLOBIN 27 PG (26.0-33.0); MEAN CORPUSCULAR HGB CONC 32 g/dl (31.0-36.0); MEAN CORPUSCULAR VOLUME 82 fL (80-96); MONOCYTES # (AUTO) 1.9 K/uL (0.1-1.30); MONOCYTES % (AUTO) 9.7 % (2.0-12.0); NEUTROPHILS % (AUTO) 87.7 % (43.0-81.0); PLATELET COUNT (AUTO) 172 K/uL (150-450); RED BLOOD CELL COUNT(AUTO) 4.24 MIL/uL (4.5-6.0); RED CELL DISTRIBUTION WIDTH 14.7 % (11.5-15.0); WHITE BLOOD COUNT (AUTO) 19.4 K/uL (4.3-11.0)
[2023-07-14 13:30] LABS: CALCIUM, SERUM 9.2 mg/dL (8.5-10.1); CARBON DIOXIDE 22 mmol/L (21-32); CHLORIDE 102 mmol/L (98-107); CREATININE 2.2 mg/dL (0.6-1.3); GLUCOSE 213 mg/dL (74-106); POTASSIUM 4.9 mmol/L (3.5-5.1); SODIUM SERUM 135 mmol/L (136-145); UREA NITROGEN, BLOOD 53 mg/dL (7-18)
[2023-07-14 13:37] LABS: ALANINE AMINOTRANSFERASE 64 U/L (12-78); ALBUMIN 3.7 g/dL (3.4-5.0); ALKALINE PHOSPHATASE 173 U/L (46-116); ASPARTATE AMINOTRANSFERASE 33 U/L (15-37); BILIRUBIN,DIRECT 0.2 mg/dL (0.0-0.2); BILIRUBIN,TOTAL 0.7 mg/dL (0.2-1.0); LIPASE 16 U/L (16-77); TOTAL PROTEIN, SERUM 7.2 g/dL (6.4-8.2)
[2023-07-14 14:01] LABS: APPEARANCE,URINE TURBID (CLEAR); BILIRUBIN,URINE NEGATIVE (NEGATIVE); BLOOD, URINE 2+ Ery/uL (NEGATIVE); COLOR,URINE YELLOW (YELLOW); KETONES,URINE NEGATIVE (NEGATIVE); LEUKOCYTE ESTERASE ,URINE 3+ (NEGATIVE); NITRITE, URINE POSITIVE (NEGATIVE); PROTEIN,URINE 3+ mg/dl (NEGATIVE); UGLUCOSE NEGATIVE (NEGATIVE); UROBILINOGEN,URINE 0.2 EU/dL (0.2)
[2023-07-14 14:23] LABS: WBC,URINE TOO NUMEROUS TO COUN /HPF (0-3)
[2023-07-14 14:24] LABS: ADD URINE CULTURE YES; BACTERIA,URINE Moderate /HPF (None Seen); SQUAMOUS EPITHELIAL CELL,UR Few /HPF (None Seen)
[2023-07-14] MEDS ORDERED: CIPR500T5 PO (14:24)
[2023-07-14 17:08] VITALS: BP 137/80; TEMP 98.2; O2SAT 98
== END 2023-07-14 17:08 | disposition home or self-care (01) ==
LOC: ER 12:50
DX: N39.0 Urinary tract infection, site not specified (principal); R33.9 Retention of urine, unspecified; I10 Essential (primary) hypertension; E11.9 Type 2 diabetes mellitus without complications; Z98.890 Other specified postprocedural states; Z79.899 Other long term (current) drug therapy; Z79.4 Long term (current) use of insulin
CPT/HCPCS: 99284; 96360; 51702; 85025; 80048; 87086; 83690; 80076; 81001; 36415; J7030; J2270; J2405

== ENCOUNTER 2023-09-19 16:54 | Emergency (ER) | payer MEDICARE ==
[~2023-09-19] VITALS: Ht 175.3 cm; Wt 81.6 kg
[2023-09-19 18:31] LABS: BASOPHILS % (AUTO) 0.4 % (0.0-2.0); EOSINOPHILS # (AUTO) 0.1 K/uL (0.0-0.7); EOSINOPHILS % (AUTO) 0.5 % (0.0-6.0); HEMATOCRIT 30 % (39-51); HEMOGLOBIN 9.8 g/dL (13.5-17.5); LYMPHOCYTES # (AUTO) 0.7 K/uL (0.8-4.8); LYMPHOCYTES % (AUTO) 6.4 % (20.0-44.0); MEAN CORPUSCULAR HEMOGLOBIN 25 PG (26.0-33.0); MEAN CORPUSCULAR HGB CONC 33 g/dl (31.0-36.0); MEAN CORPUSCULAR VOLUME 75 fL (80-96); MONOCYTES # (AUTO) 0.5 K/uL (0.1-1.30); MONOCYTES % (AUTO) 4.9 % (2.0-12.0); NEUTROPHILS # (AUTO) 9.8 K/uL (1.8-8.9); NEUTROPHILS % (AUTO) 87.8 % (43.0-81.0); PLATELET COUNT (AUTO) 388 K/uL (150-450); RED BLOOD CELL COUNT(AUTO) 3.91 MIL/uL (4.5-6.0); RED CELL DISTRIBUTION WIDTH 14.1 % (11.5-15.0); WHITE BLOOD COUNT (AUTO) 11.2 K/uL (4.3-11.0)
[2023-09-19 18:45] LABS: CALCIUM, SERUM 9.3 mg/dL (8.5-10.1); CARBON DIOXIDE 20 mmol/L (21-32); CHLORIDE 95 mmol/L (98-107); CREATININE 2.3 mg/dL (0.6-1.3); GLUCOSE 319 mg/dL (74-106); POTASSIUM 4.4 mmol/L (3.5-5.1); SODIUM SERUM 126 mmol/L (136-145); UREA NITROGEN, BLOOD 40 mg/dL (7-18)
[2023-09-19] MEDS ORDERED: AZIT250T PO (19:29)
[2023-09-19] MEDS ORDERED: CEFTRIAXONE 1GM BAG (ER ONLY) 50 ML IV ONE ×2 (19:30→19:37)
[2023-09-19 19:33] LABS: ANISOCYTOSIS 1+; LYMPHOCYTES % (MANUAL) 11 % (16-48); MONOCYTES % (MANUAL) 4 % (0-11.0); NEUTROPHILS % (MANUAL) 85 (42-76); PLATELET ESTIMATE ADEQUATE
[2023-09-19 19:34] LABS: OVALOCYTES RARE
[2023-09-19] MEDS ORDERED: IV NS 0.9% 500 ML BAG IV ONE (20:00)
[2023-09-19 22:57] VITALS: BP 143/72; TEMP 98; O2SAT 99
== END 2023-09-19 22:58 | disposition home or self-care (01) ==
LOC: ER 16:56
DX: J18.9 Pneumonia, unspecified organism (principal); I10 Essential (primary) hypertension; E11.9 Type 2 diabetes mellitus without complications; Z79.4 Long term (current) use of insulin; Z79.899 Other long term (current) drug therapy; Z20.822 Contact with and (suspected) exposure to COVID-19
CPT/HCPCS: 99285; 96365; 71045; 87426; 93005; 87804 ×2; 85025; 80048; 36415; 84484; 82962; 85007; J0696

== ENCOUNTER 2024-10-05 20:00 | Inpatient (IN) | payer MEDICARE, OTHER ==
[~2024-10-05] VITALS: Ht 175.3 cm; Wt 88.0 kg
[~2024-10-05 20:00] MED LIST changes: +AZIT250T PO
[2024-10-05] MEDS: IV NS 0.9% 1,000 ML BAG IV ONE (20:49)
[2024-10-05 20:51] LABS: APPEARANCE,URINE Clear (CLEAR); BILIRUBIN,URINE Negative (NEGATIVE); BLOOD, URINE Large Ery/uL (NEGATIVE); COLOR,URINE YELLOW (YELLOW); KETONES,URINE 15 mg/dL (NEGATIVE); LEUKOCYTE ESTERASE ,URINE Negative (NEGATIVE); NITRITE, URINE Negative (NEGATIVE); PH,URINE 5.5 (5.0-8.0); PROTEIN,URINE 100 mg/dl (NEGATIVE); UGLUCOSE Negative (NEGATIVE)
[2024-10-05 20:53] LABS: BASOPHILS % (AUTO) 0.5 % (0.0-2.0); EOSINOPHILS # (AUTO) 0.1 K/uL (0.0-0.7); EOSINOPHILS % (AUTO) 0.6 % (0.0-6.0); HEMATOCRIT 35 % (39-51); HEMOGLOBIN 11.4 g/dL (13.5-17.5); LYMPHOCYTES # (AUTO) 0.5 K/uL (0.8-4.8); LYMPHOCYTES % (AUTO) 5.2 % (20.0-44.0); MEAN CORPUSCULAR HEMOGLOBIN 26 PG (26.0-33.0); MEAN CORPUSCULAR HGB CONC 33 g/dl (31.0-36.0); MEAN CORPUSCULAR VOLUME 80 fL (80-96); MONOCYTES # (AUTO) 0.9 K/uL (0.1-1.30); MONOCYTES % (AUTO) 8.6 % (2.0-12.0); NEUTROPHILS # (AUTO) 8.7 K/uL (1.8-8.9); NEUTROPHILS % (AUTO) 85.1 % (43.0-81.0); PLATELET COUNT (AUTO) 274 K/uL (150-450); RED BLOOD CELL COUNT(AUTO) 4.37 MIL/uL (4.5-6.0); WHITE BLOOD COUNT (AUTO) 10.3 K/uL (4.3-11.0)
[2024-10-05 21:04] LABS: MAGNESIUM 1.7 mg/dL (1.8-2.4); PHOSPHORUS 3.4 mg/dL (2.5-4.9)
[2024-10-05 21:08] LABS: CALCIUM, SERUM 8.8 mg/dL (8.5-10.1); CARBON DIOXIDE 21 mmol/L (21-32); CHLORIDE 91 mmol/L (98-107); CREATININE 3.4 mg/dL (0.6-1.3); POTASSIUM 5.1 mmol/L (3.5-5.1); SODIUM SERUM 122 mmol/L (136-145); UREA NITROGEN, BLOOD 61 mg/dL (7-18)
[2024-10-05 21:09] LABS: ADD URINE CULTURE NO; BACTERIA,URINE Few /HPF (None Seen); SQUAMOUS EPITHELIAL CELL,UR Few /HPF (None Seen)
[2024-10-05 21:13] LABS: SITE, VBG VBG - N/A; VBG BASE EXCESS -4.6 mmol/L (-2.0-3.0); VBG COHb 0.3 % (0.5-1.5); VBG HCO3 19.6 mmol/L (22.0-29.0); VBG MetHb 0.2 % (0.5-1.5); VBG O2Hb 62.6 % (0-79); VBG OXYGEN SATURATION 62.9 % (60.0-85.0); VBG PCO2 32.9 mmHg (38.0-54.0); VBG PH 7.392 (7.320-7.430); VBG TOTAL HEMOGLOBIN 10.7 G/dL (13.5-17.5)
[2024-10-05 21:13] LABS: GLUCOSE 711 mg/dL (74-106)
[2024-10-05 21:25] LABS: ACETONE, SERUM NEGATIVE (NEGATIVE)
[2024-10-05] MEDS ORDERED: INSULIN REGULAR, HUMAN 100 UNIT/ML 10 ML VIAL ONE (21:43)
[2024-10-05] MEDS ORDERED: Magnesium 1GM/D5W 100ML PREMIX 100 ML IV ONE (21:43)
[2024-10-05] MEDS: INSULIN REGULAR, HUMAN 100 UNIT/ML 10 ML VIAL SQ ONE (21:51)
[2024-10-05] MEDS: IV LR 1000 ML 1,000 ML IV ONE (21:51)
[2024-10-05] MEDS: Magnesium 1GM/D5W 100ML PREMIX 100 ML IV SCH (21:51)
[2024-10-06] MEDS ORDERED: ACETAMINOPHEN 325 MG TABLET PO PRN
[2024-10-06] MEDS ORDERED: Z GUARD REMEDY 4 OZ OINT TP PRN
[2024-10-06] MEDS ORDERED: DEXTROSE 50%-WATER 50 ML DISP.SYRIN IV PRN
[2024-10-06] MEDS: BLOOD SUGAR DIAGNOSTIC 1 EACH STRIP VI SCH (00:09)
[2024-10-06] MEDS: *INSULIN REGULAR(HUMULIN R)HUM 100 UNIT/ML VIAL SQ PRN (00:13)
[2024-10-06 00:30] VITALS: BP 174/84; TEMP 97.6; O2SAT 96
[2024-10-06] MEDS: IV NS 0.9% 1,000 ML IV PRN (01:06)
[2024-10-06 04:00] VITALS: BP 155/74; TEMP 98.1; O2SAT 96
[2024-10-06 08:00] VITALS: BP 155/74; TEMP 98.1; O2SAT 94
[2024-10-06 08:04] LABS: BASOPHILS % (AUTO) 0.6 % (0.0-2.0); EOSINOPHILS # (AUTO) 0.1 K/uL (0.0-0.7); EOSINOPHILS % (AUTO) 1.3 % (0.0-6.0); HEMATOCRIT 24 % (39-51); HEMOGLOBIN 7.7 g/dL (13.5-17.5); LYMPHOCYTES # (AUTO) 0.7 K/uL (0.8-4.8); LYMPHOCYTES % (AUTO) 11.7 % (20.0-44.0); MEAN CORPUSCULAR HEMOGLOBIN 26 PG (26.0-33.0); MEAN CORPUSCULAR HGB CONC 32 g/dl (31.0-36.0); MEAN CORPUSCULAR VOLUME 81 fL (80-96); MONOCYTES # (AUTO) 0.5 K/uL (0.1-1.30); MONOCYTES % (AUTO) 8.2 % (2.0-12.0); NEUTROPHILS # (AUTO) 4.4 K/uL (1.8-8.9); NEUTROPHILS % (AUTO) 78.2 % (43.0-81.0); PLATELET COUNT (AUTO) 181 K/uL (150-450); RED BLOOD CELL COUNT(AUTO) 2.93 MIL/uL (4.5-6.0); RED CELL DISTRIBUTION WIDTH 14.8 % (11.5-15.0); WHITE BLOOD COUNT (AUTO) 5.7 K/uL (4.3-11.0)
[2024-10-06 08:19] LABS: CALCIUM, SERUM 6.8 mg/dL (8.5-10.1); CREATININE 2.4 mg/dL (0.6-1.3); MAGNESIUM 1.5 mg/dL (1.8-2.4); PHOSPHORUS 2.5 mg/dL (2.5-4.9); POTASSIUM 3.3 mmol/L (3.5-5.1)
[2024-10-06] MEDS: PANTOPRAZOLE 40 MG TABLET.DR PO SCH (08:24)
[2024-10-06 08:26] LABS: THYROID STIMULATING HORMONE 1.55 uIU/mL (0.358-3.74)
[2024-10-06] MEDS: MYCOPHENOLATE MOFETIL 250 MG CAPSULE PO SCH (08:47)
[2024-10-06] MEDS: TACROLIMUS ANHYDROUS 0.5 MG CAPSULE PO SCH (08:48)
[2024-10-06] MEDS: HEPARIN SODIUM, PORCINE 5000 UNITS/1 ML VIAL SQ SCH (08:51)
[2024-10-06] MEDS ORDERED: PANTOPRAZOLE 40 MG TABLET.DR PO SCH (09:00)
[2024-10-06] MEDS ORDERED: MYCOPHENOLATE MOFETIL 250 MG CAPSULE PO SCH (09:00)
[2024-10-06] MEDS ORDERED: TACROLIMUS ANHYDROUS 1 MG CAPSULE PO SCH (09:00)
[2024-10-06] MEDS: INSULIN REGULAR, HUMAN 100 UNIT/ML 3 ML VIAL SQ PRN (09:24)
[2024-10-06] MEDS: VENLAFAXINE XR 150 MG CAP.SR.24H PO SCH (09:27)
[2024-10-06] MEDS: MAGNESIUM OXIDE 400 MG TABLET PO SCH (09:28)
[2024-10-06] MEDS: predniSONE 5 MG TABLET PO SCH (09:29)
[2024-10-06] MEDS: POTASSIUM CHLORIDE 10 MEQ TABLET.SA PO ONE (11:24)
[2024-10-06 16:00] VITALS: BP 170/88; TEMP 98; O2SAT 97
[2024-10-06] MEDS ORDERED: POTASSIUM CHLORIDE 20 MEQ TAB.PRT.SR PO ONE (18:30)
[2024-10-06] MEDS: Magnesium 1GM/D5W 100ML PREMIX 100 ML IV SCH (18:46)
[2024-10-06 20:00] VITALS: BP 180/84; TEMP 98.2
[2024-10-06] MEDS ORDERED: INSULIN GLARGINE, 100 UNIT/ML CARTRIDGE SQ SCH (22:00)
[2024-10-06] MEDS ORDERED: TAMSULOSIN 0.4 MG CAP.SR.24H PO SCH (22:00)
[2024-10-06] MEDS: ONDANSETRON HCL/PF 4 MG/2 ML VIAL IVP PRN (22:07)
[2024-10-06] MEDS: TAMSULOSIN 0.4 MG CAP.SR.24H PO SCH (22:08)
[2024-10-06] MEDS: INSULIN GLARGINE, 100 UNIT/ML CARTRIDGE SQ SCH (22:29)
[2024-10-07 04:00] VITALS: BP 168/81; TEMP 98.2
[2024-10-07] MEDS: CARVEDILOL 12.5 MG TABLET PO SCH (07:10)
[2024-10-07] MEDS ORDERED: INSU100V7 SQ (07:50)
[2024-10-07 08:00] VITALS: BP 134/76; TEMP 98.2
[2024-10-07 08:30] LABS: ALBUMIN 2.5 g/dL (3.4-5.0); BILIRUBIN,TOTAL 0.5 mg/dL (0.2-1.0); CALCIUM, SERUM 8.2 mg/dL (8.5-10.1); CREATININE 2.8 mg/dL (0.6-1.3); PHOSPHORUS 3.4 mg/dL (2.5-4.9); TOTAL PROTEIN, SERUM 5.7 g/dL (6.4-8.2)
[2024-10-07 08:39] LABS: BASOPHILS % (AUTO) 0.5 % (0.0-2.0); EOSINOPHILS # (AUTO) 0.2 K/uL (0.0-0.7); EOSINOPHILS % (AUTO) 2.1 % (0.0-6.0); HEMATOCRIT 33 % (39-51); HEMOGLOBIN 10.8 g/dL (13.5-17.5); LYMPHOCYTES % (AUTO) 12.9 % (20.0-44.0); MEAN CORPUSCULAR HEMOGLOBIN 26 PG (26.0-33.0); MEAN CORPUSCULAR HGB CONC 33 g/dl (31.0-36.0); MEAN CORPUSCULAR VOLUME 78 fL (80-96); MONOCYTES # (AUTO) 0.7 K/uL (0.1-1.30); MONOCYTES % (AUTO) 9.6 % (2.0-12.0); NEUTROPHILS # (AUTO) 5.8 K/uL (1.8-8.9); NEUTROPHILS % (AUTO) 74.9 % (43.0-81.0); PLATELET COUNT (AUTO) 247 K/uL (150-450); RED BLOOD CELL COUNT(AUTO) 4.17 MIL/uL (4.5-6.0); RED CELL DISTRIBUTION WIDTH 14.5 % (11.5-15.0); WHITE BLOOD COUNT (AUTO) 7.7 K/uL (4.3-11.0)
[2024-10-07 08:41] LABS: THYROID STIMULATING HORMONE 2.63 uIU/mL (0.358-3.74); URIC ACID 6.2 mg/dL (2.6-7.2)
[2024-10-07 09:17] VITALS: BP 134/76
[2024-10-09 07:09] LABS: PTH, INTACT 158 pg/mL (15-65)
[2024-10-09 12:06] LABS: *SPE ALBUMIN 2.7 g/dL (2.9-4.4); *SPE ALPHA-1-GLOBULIN 0.3 g/dL (0.0-0.4); *SPE ALPHA-2-GLOBULIN 0.9 g/dL (0.4-1.0); *SPE GLOBULIN, TOTAL 2.6 g/dL (2.2-3.9); *SPE M-SPIKE Not Observed g/dL (Not Observed); *SPE PROTEIN TOTAL 5.3 g/dL (6.0-8.5); *SPEGAMMA GLOBULIN 0.5 g/dL (0.4-1.8)
== END 2024-10-07 14:20 | disposition home or self-care (01) | DRG 951 ==
LOC: ER 20:08 → TELE 21:44 → UNDOADMIN 21:44 → MEDSG1 23:23
PROVIDERS: ADMIT Nurse Practitioner Family; ATTEND Internal Medicine
DX: T38.3X6A Underdosing of insulin and oral hypoglycemic [antidiabetic] drugs, initial encounter (principal); T86.19 Other complication of kidney transplant; E87.1 Hypo-osmolality and hyponatremia; N17.9 Acute kidney failure, unspecified; Z94.4 Liver transplant status; N40.1 Benign prostatic hyperplasia with lower urinary tract symptoms; Y92.009 Unspecified place in unspecified non-institutional (private) residence as the place of occurrence of the external cause; Y83.0 Surgical operation with transplant of whole organ as the cause of abnormal reaction of the patient, or of later complication, without mention of misadventure at the time of the procedure; Z79.4 Long term (current) use of insulin; Z86.73 Personal history of transient ischemic attack (TIA), and cerebral infarction without residual deficits; Z87.891 Personal history of nicotine dependence; Z91.148 Patient's other noncompliance with medication regimen for other reason; K72.90 Hepatic failure, unspecified without coma; E11.22 Type 2 diabetes mellitus with diabetic chronic kidney disease; B19.20 Unspecified viral hepatitis C without hepatic coma; D64.9 Anemia, unspecified; E11.65 Type 2 diabetes mellitus with hyperglycemia; E78.5 Hyperlipidemia, unspecified; E83.42 Hypomagnesemia; E86.0 Dehydration; R39.11 Hesitancy of micturition; Z79.51 Long term (current) use of inhaled steroids; Z79.899 Other long term (current) drug therapy; I12.9 Hypertensive chronic kidney disease with stage 1 through stage 4 chronic kidney disease, or unspecified chronic kidney disease; N18.9 Chronic kidney disease, unspecified; Z90.49 Acquired absence of other specified parts of digestive tract
CPT/HCPCS: 36415; 76770-TC; 80048-TC; 80053-TC; 80061-TC; 81001; 82010-TC; 82550-TC; 82803-TC; 82962-TC; 83735-TC; 83970; 84100-TC; 84155; 84165; 84443-TC; 84550-TC; 85025-TC; A4223; G0378; J1644; J1815; J2405; J3475; J7030; J7120; J7507; J7512; J7517

== ENCOUNTER 2024-10-09 16:50 | Emergency (ER) | payer MEDICARE ==
[~2024-10-09] VITALS: Ht 274.3 cm; Wt 86.2 kg
[2024-10-09] MEDS ORDERED: TAMSULOSIN 0.4 MG CAP.SR.24H ONE (17:31)
[2024-10-09] MEDS: TAMSULOSIN 0.4 MG CAP.SR.24H PO ONE (17:36)
[2024-10-09 18:23] LABS: APPEARANCE,URINE CLOUDY (CLEAR); BILIRUBIN,URINE NEGATIVE (NEGATIVE); BLOOD, URINE 2+ Ery/uL (NEGATIVE); COLOR,URINE YELLOW (YELLOW); KETONES,URINE NEGATIVE (NEGATIVE); LEUKOCYTE ESTERASE ,URINE 3+ (NEGATIVE); NITRITE, URINE POSITIVE (NEGATIVE); PROTEIN,URINE 3+ mg/dl (NEGATIVE); UGLUCOSE 1+ mg/dL (NEGATIVE); UROBILINOGEN,URINE 0.2 EU/dL (0.2)
[2024-10-09] MEDS ORDERED: CEPH500T PO (18:56)
[2024-10-09] MEDS ORDERED: TAMS-12 PO (18:56)
[2024-10-09 19:33] LABS: ADD URINE CULTURE YES; BACTERIA,URINE 4+ /HPF (None Seen); MUCUS,URINE Many /LPF (None Seen); RBC,URINE 21-50 /HPF (0-2); WBC,URINE TOO NUMEROUS TO COUN /HPF (0-3)
[2024-10-09 22:11] VITALS: BP 141/70; TEMP 97.8; O2SAT 99
== END 2024-10-09 22:11 | disposition home or self-care (01) ==
LOC: ER 17:15
DX: N39.0 Urinary tract infection, site not specified (principal); E11.9 Type 2 diabetes mellitus without complications; I10 Essential (primary) hypertension; Z79.621 Long term (current) use of calcineurin inhibitor; Z79.624 Long term (current) use of inhibitors of nucleotide synthesis; Z79.899 Other long term (current) drug therapy; Z94.0 Kidney transplant status; Z94.4 Liver transplant status
CPT/HCPCS: 81001